=== PATIENT | male | born 1960 | race Caucasian/White ===

== ENCOUNTER → 2017-11-19 | Outpatient (CLI) | payer BC | LOC: BMCIMAGING 14:21 | PROVIDERS: ATTEND Podiatrist Foot & Ankle Surgery | DX: L97.521 Non-pressure chronic ulcer of other part of left foot limited to breakdown of skin (principal); M79.89 Other specified soft tissue disorders ==

== ENCOUNTER → 2018-02-23 | Outpatient (CLI) | payer BC | LOC: BMCIMAGING 12:04 | PROVIDERS: ATTEND Emergency Medicine | DX: M24.112 Other articular cartilage disorders, left shoulder (principal) ==

== ENCOUNTER → 2018-03-17 | Outpatient (CLI) | payer BC | LOC: BMCIMAGING 08:59 | PROVIDERS: ATTEND Emergency Medicine | DX: M19.041 Primary osteoarthritis, right hand (principal); Z87.81 Personal history of (healed) traumatic fracture ==

== ENCOUNTER → 2018-09-16 | Outpatient (CLI) | payer BC | LOC: BMCIMAGING 13:44 | PROVIDERS: ATTEND Family Medicine | DX: M79.89 Other specified soft tissue disorders (principal); M20.11 Hallux valgus (acquired), right foot ==